=== PATIENT | female | born 1995 | race African-American/Black ===

== ENCOUNTER 2019-10-06 14:31 | Emergency (ER) | payer OTHER, SELFPAY ==
[2019-10-06 14:44] VITALS: BP 128/90; PULSE 114; RESP 16; TEMP 36.9; O2SAT 100
--- NOTE | 2019-10-06 14:59 | ED.GENADULT ---
HPI - General Adult General Chief complaint: Unspecified Stated complaint: allergic reaction Time Seen by Provider: 10/06/19 14:59 Source: patient and family Mode of arrival: ambulatory Limitations: no limitations History of Present Illness HPI narrative: Patient is a 24-year-old female who presents for evaluation of throat pain. Patient reports feeling as if a lump is stuck in her throat. Patient symptoms started earlier this morning, patient had eaten a late breakfast, and started to feel as if something was stuck in her throat. She denies any difficulty breathing, reports she only has throat pain. She denies inability to tolerate her own saliva, she denies vomiting. No rash, wheezing, shortness of breath. No hives. No diarrhea. No history of thyroid issues. No swelling in her throat. No chest pain. Related Data Home Medications Medication Instructions Recorded Confirmed drospirenone-ethinyl estradiol 1 tablet PO DAILY 10/06/19 metformin 500 mg PO TID 10/06/19 valacyclovir 500 mg PO DAILY 10/06/19 Allergies Allergy/AdvReac Type Severity Reaction Status Date / Time cat dander Allergy Other Verified 10/06/19 15:21 Review of Systems Review of Systems: Narrative: CONSTITUTIONAL: Denies fever, chills, or sweats. ENT: Denies rhinorrhea, congestion, patient reports mildly sore throat, no ear pain CARDIOVASCULAR: Denies chest pain, palpitations, or edema. RESPIRATORY: Denies cough or dyspnea. GASTROINTESTINAL: Denies abdominal pain, nausea, vomiting, or diarrhea. GENITOURINARY: Denies dysuria or hematuria. SKIN: Denies rash or itching. MUSCULOSKELETAL: Denies back pain, joint pain NEUROLOGIC: Denies headache PMFSH Past Medical History Medical History (Updated 10/06/19 @ 16:21 by Barbara Cash MD) Keloid skin disorder Surgical History Surgical History (Updated 10/06/19 @ 15:17 by Barbara Cash MD) No pertinent past surgical history Family History Family History Father Diabetes mellitus Hypertension Social History Social History Smoking status: Never smoker Alcohol intake: never Exam Narrative: Exam Narrative: GENERAL: Awake, alert, conversant HEAD: Normocephalic, atraumatic. EYES: PERRLA and EOMI. ENT: Nares clear, no rhinorrhea or epistaxis. Mucous membranes moist. Oropharynx is clear without erythema or exudate. Uvula is midline without edema. No tongue edema. No trismus. No evidence of peritonsillar abscess. NECK: Supple.No submandibular or cervical anterior or posterior lymphadenopathy. Thyroid is nontender. No thyromegaly. No nodules palpated. CHEST: No respiratory distress, breathing even and non labored HEART: Regular rate, sinus rhythm ABDOMEN:Non distended, non tender EXTREMITIES: Normal range of motion. No edema. SKIN: Warm, dry, no rash. NEURO:No focal deficits. Alert and oriented x3 Course Course Emergency Course: Patient presented for evaluation of pain in her throat. Patient initially thought she was having an allergic reaction, but at this point time, patient has no improvement with Benadryl or other [id number] remedies. Patient has no sign of severe allergic reaction such as anaphylaxis. No rash, vomiting, diarrhea, shortness of breath. Patient has stable vital signs, normal oxygenation, no trismus, erythema of the oropharynx or exudate that would be consistent with strep pharyngitis. No lymphadenopathy. Thyroid is nontender. Patient is tolerating her secretions, this is not presenting like a food impaction or obstruction. No sign of epiglottitis after being observed in the emergency department. She is afebrile without any respiratory distress. Patient was given Solu-Medrol in the emergency department. She was reassessed and had no other concerning features. At this point, I believe patient may complete an outpatient work-up with her prima
[2019-10-06] MEDS: KETOROLAC (*BKC) 60 MG/2 ML VIAL 30 MG IM (15:28)
[2019-10-06] MEDS: methylPREDNISolone ACETATE 80 MG/ML VIAL IM (15:28)
[2019-10-06] MEDS: FAMOTIDINE 20 MG TABLET PO (15:29)
[2019-10-06] MEDS: ACETAMINOPHEN 500 MG TABLET 1000 MG PO (15:30)
[2019-10-06 16:45] VITALS: BP 125/87; PULSE 82; RESP 14; O2SAT 100
== END 2019-10-06 16:47 | disposition home or self-care (01) ==
PROVIDERS: Emergency Provider Emergency Medicine; PCP Family Medicine
DX: R13.10 Dysphagia, unspecified (principal)
CPT/HCPCS: 96372; 99284; A9270; J1040; J1885